=== PATIENT | male | born 1995 | race Caucasian/White ===

== ENCOUNTER 2020-07-09 08:57 | Emergency (ER) | payer OTHER, SELFPAY ==
[2020-07-09 09:44] VITALS: BP 116/72; PULSE 99; RESP 14; TEMP 36.9; O2SAT 99; BMI 25.7
--- NOTE | 2020-07-09 10:04 | ED_ITS ---
HPI - General Adult General Chief complaint: Upper Respiratory Symptoms Stated complaint: COVID LIKE SYMPTONS Time Seen by Provider: 07/09/20 09:47 Source: patient Mode of arrival: ambulatory Limitations: no limitations History of Present Illness HPI narrative: 25-year-old male who presents the emergency department for evaluation of viral-like illness. Patient states that he has been sick for approximately 6 days. He has felt hot and cold but did not take his temperature at home. He has had rhinorrhea and a cough which is occasionally productive. He feels short of breath but denies dyspnea on exertion. He has had myalgias which she states are mild. He noted nausea without vomiting. He had 4-5 loose stools per day for the past 4 days. He has had no change in his taste of sense of smell. He states that he has a friend that he was exposed to did test positive for COVID-19 virus. The patient states that he is not working at this time. He lives at home with his mother who is 49 years old and she is not ill at this time. Related Data Allergies Allergy/AdvReac Type Severity Reaction Status Date / Time No Known Allergies Allergy Unverified 02/12/20 16:34 Review of Systems Review of Systems: Yes all other systems are reviewed and are negative Neurologic: Reports Abnormal speech present [facility] Past Medical History [facility] Narrative: The patient has no medical problems. She denies tobacco and alcohol use. He does smoke marijuana 5 times a week. He states he is currently unemployed and living with his mother. Social History Social History Advance Directives: No Advance Directives Information Provided: No Physical Exam Vital Signs: Vital Signs: Last Vital Signs Temp 98.5 F 07/09/20 09:44 Pulse 99 07/09/20 09:44 Resp 14 07/09/20 09:44 BP 116/72 07/09/20 09:44 Pulse Ox 99 07/09/20 09:44 Body Mass Index 25.7 Const: General: cooperative and healthy appearing Orientation/consciousness: oriented to person and oriented to place Limitations: no limitations HENMT: Head: Yes normal to inspection, Yes normocephalic and Yes atraumatic Ears: external ears normal General nose exam: Normal external nose present Face and sinus: Yes normal facial exam Mouth: Normal oral and palatal mucosa present Throat: Yes posterior oropharynx normal Eyes: Periorbital: periorbital findings normal Eyelids: Yes eyelids normal Conjunctivae: conjunctivae normal Sclerae: sclerae normal Corneas: corneas normal Pupils: Equal, round and reactive pupils present Direct Ophthalmoscopy: normal light reflex Neck: Neck: Yes full ROM, Yes no lymphadenopathy, Yes no meningeal signs, Yes trachea midline and Yes supple Chest: Chest palpation & inspection: normal inspection of the chest and normal palpation of entire chest wall Resp: Effort & Inspection: normal respiratory effort and able to speak in complete sentences Auscultation: clear to auscultation bilaterally Cardio: Rate: regular rate Rhythm: regular rhythm Heart sounds: S1 normal heart sound present, S2 normal heart sound present and no murmurs GI: Inspection: Yes normal to inspection Palpation (GI): Soft to palpation, nontender, no guarding, not rigid and No hepatosplenomegaly present : General: Yes no CVA tenderness Back/Spine/Pelvis: Back: no CVA tenderness Cervical Spine: normal cervical lordosis Thoracic/Lumbar Spine: thoracic and lumbar spine normal to inspection Skin: Lesions: no lesions Rashes: no rashes Wounds: no wounds Neuro: General: oriented to person, oriented to place and no meningeal signs Cranial nerves: Yes Equal, round and reactive pupils present Cognition (Neuro): normal cognition Speech: Abnormal speech present Motor exam (neuro): 5/5 motor strength present throughout Extrem: General: Yes normal to inspection and Yes full ROM Psych: Appearance: well kempt Mental Status: mental status grossly normal Speech and movement: Normal speech and movement present Affect: normal affect Attitude: cooperative Thought process: Normal thought process present Thought content: Normal thought content present Course Course Course Narrative: 25-year-old male who presents emergency department for evaluation of viral-like illness which is consistent with COVID-19 infection. The patient will be tested for COVID 19. His exam was unremarkable, vital sign were normal with a temperature 98.5?, blood pressure 116/72, pulse 99 and respiratory to 14. O2 saturation was 99% on room air. Do not think that he needs any further evaluation. He was given printed instructions on COVID-19 and advised to isolate for 14 days. Discharge Plan Discharge Clinical Impression: Acute viral syndrome Patient Disposition: Home, Self-Care Instructions: COVID-19 (Coronavirus Disease 2019) (ED) Additional Instructions: Based on your symptoms and history, you were tested forCOVID-19. Your RESULT IS PENDING at this time. I will call you today with the result. You will be contacted with either a NEGATIVE OR POSITIVE results. Please wait until we contact you for your results. Based on your evaluation today, it is okay to send you home. Please plan for self quarantine for up to 14 days. Do not expose yourself to others. You may not go to work. If testing does come back negative you may return to activities as long as you are no longer having any symptoms for at least 3 days. Please continue to wear a mask, follow cold instructions and wash your hands frequently. You may take Tylenol 325 mg pills, 2 pills every 4 hours as needed for pain or fever. You may also take ibuprofen(Motrin/Advil) 200 mg pills, 3 pills every 6 hours as needed for pain or fever. Patient seen in the emergency department should be excused from work until negative test results AND until 72 hours without any symptoms have gone away completely OR at least 10 days have passed since symptoms first appeared or since last exposure to COVID-19 positive patient CDC Guidelines for home isolation: - Stay away from others - WEAR A MASK if you are sick AND STAY HOME - Cover your mouth and nose with a tissue when you cough or sneeze. Dispose of tissues in a lined trash can and wash your hands immediately with soap and water for at least 20 seconds. If soap and water are not available, clean hands with alcohol-based hand excellence coach that contains at least 60% alcohol. - Clean your hands often with soap and water for at least 20 seconds - Avoid touching your eyes, nose and mouth with unwashed hands - Do not share dishes, drinking glasses, cups, eating utensils, towels, or bedding with other people in your home. After using these items, wash them thoroughly with soap and water or put in the rotary dryer operator. - Clean high-touch surfaces in your isolation area ( sick room and bathroom) every day; let a caregiver clean and disinfect high-touch surfaces in other areas of the home. Clean the area or item with soap and water or another detergent if it is dirty. Then, use a household disinfectant. - Limit contact with pets and animals: If you must care for a pet, wash your h ands before and after interacting with them).
[2020-07-09 10:48] VITALS: BP 116/72; PULSE 99; RESP 14; TEMP 36.9; O2SAT 99
[2020-07-09 10:49] LABS: COVID-19 Test Negative (Negative); IDNOW Serial# 9DD0AD1C
== END 2020-07-09 10:50 | disposition home or self-care (01) ==
PROVIDERS: Emergency Provider Emergency Medicine Emergency Medical Services
DX: B34.9 Viral infection, unspecified (principal); Z20.822 Contact with and (suspected) exposure to COVID-19
CPT/HCPCS: 36415; 87635; 99283; 99285

== ENCOUNTER 2025-04-19 12:58 | Emergency (ER) | payer SELFPAY ==
--- OUTSIDE RECORDS SUMMARY | 2025-01-10 07:10 | XMS_ITS | Continuity of Care Document ---
Author Organization [facility] Address [address] [place] [address] Phone Care Team Providers Care Development Spec Name Role Phone Marie Blanca Unavailable Unavailabl e Allergies, Adverse Reactions, Alerts Substance Reaction Status Criticality No Known allergies Procedures Procedure Date DOT Physical With UA UA No Charge Drug Screen Rapid 5 Panel DOT Physical With UA Results Test Name Date and Time Measure Units Reference Range Abnormal Flag Status Comments Panel Description: Urine Dip Au Final Urine Dip Auto (DOT, NO CHARGE) 13:20:17 Leukocytes: negative. Nitrite: negative. Urobilinogen: 0.2 mg/dL. Protein: negative. pH: 6.0. Blood: 10 [place]/ L . Specific [place]: 1.020. Ketones: negative. Bilirubin: negative. Glucose: negative. Final Performed by:[facility] ([facility]) Advance Directives Directive Yes / No Effective Date File Name No Information Encounters Encounter Description Practice Location Reason(s) For Visit Diagnoses Date Provider Providers Copied on Encounter DOT Physical With UA [facility], [address], [place], [place], [id number], [place] tel:[phone] [facility] physical (chief complaint) Encounter for examination and observation for oth reasons Vinnie Salazar. [address], [place], [address], [place]. tel:[phone] Referring Provider: Marie MARTIN, [address], [place], [address]. [phone] [facility], [address], [place], [place], [id number], [place] tel:[phone] [facility] drug screen (chief complaint) Encounter for examination and observation for oth reasons Marc [facility] Celia. [address], [place], [address], [place]. tel:[phone] Referring Provider: Celia BASURTOP, [address], [place], [address]. [phone] DOT Physical With UA [facility], [address], [place], [place], [id number], [place] tel:[phone] [facility] physical (chief complaint) Encounter for examination and observation for oth reasons Marc [facility] Celia. [address], [place], [address], [place]. tel:[phone] Referring Provider: Celia BASURTOP, [address], [place], [address]. tel:[phone] Family History Family Member Type Diagnosis Age At Onset No Information Payers Payer name Insurance type Covered democrat ID Authoriza tion(s) No Information Social History Type Description Quantity Date Captured Comments Alcohol Use Details No Caffeine Use Details Unknown Tobacco Use Status No Information Smoking Status Never smoker Sex Male Vital Signs Date / Time: Height Weight BMI Pulse Rate Blood Pressure Temperature Respiratory Rate Body Surface Area Head Circumference Head Circ. Percentile Wt./Lobo. Percentile BMI percentile Pulse Ox Inhaled Ox 12:49 PM 68.00 in 105.687 kg (233.00 lbs) 35.4 3 kg/m eter (2) 54 /min 117/75 mm[Hg] 98.00 F 20 /min 99 % Chief Complaint And Reason For Visit From encounter dated '01/10/2025 12:10'. physical (chief complaint) Reason For Referral Reason For Referral No Information History Of Present Illness Encounter Date Complaint History Of Prese nt Illness physical drug screen physical Functional Status Date Functional Assessmen t No Information Instructions Date Instruction Additional Infor mation No Information Assessments Type Assessment Date assessment Encounter for examination and ob servation for oth reasons Patient Care Teams Name Effective Dates (start - stop) Status Members No Information
--- NOTE | ~2025-04-19 | XR_ITS ---
CLINICAL HISTORY: cp s p emesis 2 view chest x-ray Comparison: None provided Findings: No consolidation or effusion. Normal size heart. No acute fracture. IMPRESSION: 1. No acute findings. This document has been electronically signed by: Gillian Gilbert MD on 04/19/2025 14:33:55
--- NOTE | ~2025-04-19 | CT_ITS ---
CLINICAL HISTORY: upper diffuse abd pain, N V CT abdomen and pelvis with contrast Comparison: None provided Findings: No consolidation or effusion. Unremarkable gallbladder and solid organs. No urolithiasis. No bowel obstruction, pneumoperitoneum, or pneumatosis. There is diffuse wall thickening of the colon. Pelvic contents unremarkable. No evidence of acute appendicitis. The bones are intact. IMPRESSION: Diffuse wall thickening of the colon concerning for pancolitis. This document has been electronically signed by: Gillian Gilbert MD on 04/19/2025 15:27:32
--- NOTE | 2025-04-19 13:04 | ECG_ITS ---
Test Reason : CP Blood Pressure : */* mmHG Vent. Rate : 60 BPM Atrial Rate : 60 BPM P-R Int : 116 ms QRS Dur : 118 ms QT Int : 440 ms P-R-T Axes : 35 63 63 degrees QTcB Int : 440 ms Normal sinus rhythm RSR' or QR pattern in V1 suggests right ventricular conduction delay Borderline ECG No previous ECGs available Referred By: Generic ED Physician Electronically Signed By: Miquel Perez
[2025-04-19 13:09] VITALS: BP 125/72; BP 131/77; PULSE 62; PULSE 79; RESP 18; TEMP 36.2; O2SAT 100; O2SAT 99; BMI 23.0
--- NOTE | 2025-04-19 13:26 | ED_ITS ---
HPI - Nausea/Vomiting/Diarrhea General Chief complaint: Nausea/Vomiting/Diarrhea Stated complaint: VOMITING CHEST PAIN Time Seen by Provider: 04/19/25 13:09 Source: patient, EMS, RN notes reviewed and old records reviewed Mode of arrival: EMS History of Present Illness ED Provider: Azeb Morales PA-C HPI Narrative: 30-year-old male with no significant past medical history presenting to the ED complaining of nausea, vomiting, chest pain and SOB s/p 10 episodes of emesis this morning around 11:00. Admits to feeling hung over, drank a quart of hard liquor last night. Also reports some abdominal pain. Denies being daily drinker. Denies fever, chills, urinary symptoms Related Data Allergies Allergy/AdvReac Type Severity Reaction Status Date / Time No Known Allergies Allergy Verified 04/19/25 13:14 Review of Systems 2 Review of Systems: Yes all other systems are reviewed and are negative Constitutional: Constitutional: Reports as per HPI Neurologic: Denies Abnormal speech present [facility] Past Medical History Attestation statement: The following information was validated with the patient. Source: old records reviewed Social History Social History Alcohol intake: never Smoked in Last 30 Days: Yes Use of substances other than those prescribed or required for medical reasons: Yes Substance Use Type: Marijuana Substance Use Frequency: Daily Advance Directives: No Advance Directives Information Provided: Yes Do you have a plan to hurt others: No Plan Physical Exam 2 Vital Signs: Vital Signs: Last Vital Signs Temp 97.1 F 04/19/25 14:01 Pulse 79 04/19/25 14:01 Resp 18 04/19/25 14:01 BP 125/72 04/19/25 14:01 Pulse Ox 99 04/19/25 14:01 O2 Del Method Room Air 04/19/25 14:01 BMI result Body Mass Index 23.0 Const: General: cooperative, healthy appearing and no acute distress O rientation/consciousness: patient oriented x3 Limitations: no limitations HEENT: Head: Yes normal to inspection and Yes atraumatic Ears: hearing grossly normal bilaterally General nose exam: Normal external nose present Face and sinus: Yes normal facial exam Eyes: General: appearance normal, both eyes and all related structures EOM: EOMs intact bilaterally Neck: Neck: Yes normal visual inspection and Yes no meningeal signs Chest: Chest palpation & inspection: normal inspection of the chest and no tenderness Resp: Effort & Inspection: normal respiratory effort and no respiratory distress Auscultation: clear to auscultation bilaterally Cardio: Rate: regular rate Heart sounds: S1 normal heart sound present and S2 normal heart sound present GI: Inspection: Yes normal to inspection Palpation (GI): Soft to palpation, Tenderness to palpation present (GI) in the epigastrum, in the LUQ and in the RUQ; with no rebound tenderness, no guarding and not rigid Skin: Rashes: no rashes Wounds: no wounds Neuro: General: patient oriented x3, tone normal and no meningeal signs C ranial nerves: Yes CN's II-XII intact bilaterally Cognition (Neuro): normal cognition Speech: No Abnormal speech present Motor exam (neuro): no tremor noted Extrem: General: Yes normal to inspection Course Course Course Narrative: -lipase mildly elevated to 163 -UA with 40 ketones, not infected -ethanol negative. Viral testing negative CT abdomen pelvis w IV con IMPRESSION: Diffuse wall thickening of the colon concerning for pancolitis. >> on re-evaluation patient reports symptomatic improvement. Denies pain or nausea at present. Tolerated p.o. karolina misael and crackers in the ED without difficulty. Plan to discharge home with close PCP follow-up. Strict return precautions discussed Results discussed with patient including worrisome signs and symptoms and strict return precautions, and when to return to the emergency department. They verbalized understanding and feel safe for discharge at this time. Medications Administered Discontinued Medications Generic Name Dose Route Start Last Admin Trade Name Freq PRN Reason Stop Dose Admin Famotidine 20 mg 04/19/25 13:17 04/19/25 13:51 Famotidine/Pf 20 Mg/2 Ml Vial IVPUSH 04/19/25 13:18 20 mg ONCE ONE Administration Sodium Chloride 1,000 mls @ 999 mls/hr 04/19/25 13:30 04/19/25 16:09 Ns IV 04/19/25 14:30 Infused .Q1H1M CHAYO Infusion Sodium Chloride 1,000 mls @ 999 mls/hr 04/19/25 13:30 04/19/25 16:09 Ns IV 04/19/25 14:30 Infused .Q1H1M CHAYO Infusion Iohexol 100 ml 04/19/25 14:17 04/19/25 14:20 Iohexol 350 Mg/Ml 100 Ml Infus..Btl IV 04/19/25 14:18 85 ml ONCE ONE Administration Ketorolac Tromethamine 15 mg 04/19/25 13:18 04/19/25 13:51 Ketorolac Tromethamine 15 Mg/Ml Vial IVPUSH 04/19/25 13:19 15 mg ONCE ONE Administration Ondansetron HCl 4 mg 04/19/25 13:17 04/19/25 13:51 Ondansetron Hcl 4 Mg/2 Ml Vial IVPUSH 04/19/25 13:18 4 mg ONCE ONE Administration Medical Decision Making Medical Decision Making [facility] Narrative: 30-year-old male with no significant past medical history presenting to the ED complaining of nausea, vomiting, chest pain and SOB s/p 10 episodes of emesis this morning around 11:00. on exam vital signs stable, NAD, appears uncomfortable, CP not reproducible, abdomen is soft with epigastric / upper tenderness, no rebound or guarding. Concern for pancreatitis vs gastritis / GERD vs Boerhaave syndrome or Lolita-Garcia tear. Cholecystitis/ lithiasis on differential however lower. Lower suspicion for diverticulitis/ appendicitis. Rule out ACS. Low suspicion for dissection, PE plan: EKG, labs, CXR, CT AP, IVF, antiemetic /pain control, re-evaluate Please refer to course for remaining clinical decision making, interpretation of labs/imaging results, and discussions with consultants and/or family members. Differential Diagnosis Differential Diagnoses: The differential diagnosis associated with the presentation includes As above Admission/Observation Consideration of admission/observation: Escalation of care including admission/observation considered Lab Data [facility] Lab Attestation statement: I reviewed the patient's lab results. 04/19/25 13:39 04/19/25 13:39 Labs: Lab Results 04/19/25 04/19/25 Range/Units 13:39 14:58 WBC 11.2 H (4.8-10.8) X10*3/uL RBC 5.38 (4.60-5.80) X10*6/uL Hgb 14.5 (14.0-18.0) g/dl Hct 43.9 (42.0-52.0) % MCV 81.6 (80.0-98.0) fL MCH 27.0 (27.0-33.0) pg MCHC 33.0 (31.0-36.0) g/dl RDW 14.6 (11.0-16.0) % Plt Count 270 (160-400) X10*3/uL MPV 9.6 (9.4-12.4) fL Immature Gran % (Auto) 0.4 (0.0-0.4) % Neut % (Auto) 82.5 H (45-73) % Lymph % (Auto) 12.6 L (20-40) % [place] % (Auto) 3.8 (2-11) % Eos % (Auto) 0.2 (0-4) % Baso % (Auto) 0.5 (0-2) % Lymph # (Auto) 1.4 (1.2-4.9) X10*3/uL [place] # (Auto) 0.4 (0.1-1.2) X10*3/uL Eos # (Auto) 0.0 (0.0-0.4) X10*3/uL Baso # (Auto) 0.1 (0.0-0.2) X10*3/uL Abs Immat Gran (auto) 0.05 H (0.00-0.03) X10*3/uL Absolute Neuts (auto) 9.2 H (2.0-8.3) x10*3/uL Absolute Nucleated RBC 0.000 (0.0-0.012) X10*3/uL Nucleated RBC % (auto) 0.0 (0.0-0.2) /100WBC Sodium 143 (135-145) mmol/L Potassium 3.9 (3.3-5.1) mmol/L Chloride 104 (96-108) mmol/L Carbon Dioxide 25 (22-29) mmol/L Anion Gap 18 (12-20) BUN 15 (9-16) mg/dL Creatinine 0.74 (0.5-1.4) mg/dL Estim Creat Clear Calc 119.6 Estimated GFR > 60 Random Glucose 107 (60-115) mg/dL Calcium 9.6 (8.4-10.2) mg/dL Magnesium 1.8 (1.6-2.6) mg/dL Total Bilirubin 0.8 (0.0-1.0) mg/dL AST 34 (5-37) U/L ALT 25 (0-40) U/L Alkaline Phosphatase 54 (39-117) U/L Total Protein 8.1 H (6.5-8.0) g/dL Albumin 5.3 H (3.5-5.0) g/dL Lipase 163 H (8-78) U/L Urine Color Yellow Urine Appearance Clear Urine pH 7.0 (5.0-9.0) Ur Specific [place] >= 1.030 H (1.005-1.025) Urine Protein 30 (1+) H (Neg-Trace) mg/dL Urine Glucose (UA) Negative (Negative) mg/dL Urine Ketones 40 (Negative) mg/dL Urine Blood Negative (Negative) Urine Nitrite Negative (Negative) Ur Leukocyte Esterase Negative (Negative) Urine RBC 0-2 (0-2) /HPF Urine WBC 0-5 (0-5) /HPF Ur Squamous Epith Cells 0-2 (0-2) /HPF Urine Bacteria None Seen (None Seen) Hyaline Casts 0-2 (0-2) /LPF Ethyl Alcohol < 10 mg/dL Influenza Type A (PCR) NEGATIVE (Negative) Influenza Type B (PCR) NEGATIVE (Negative) RSV RNA Qual (PCR) NEGATIVE (Negative) SARS-CoV-2 RNA (RT-PCR) NEGATIVE (Negative) Independent Interpretation I performed an independent interpretation of an: EKG and CT Scan Radiology Impression Discussion of test interpretation with radiology: I have reviewed the radiologist's reading. Independent Historian Clinical information obtained from an independent historian. History obtained from or confirmed by: EMS External Record Review External record reviewed: Inpatient record, Office record, Outpatient record, Prior outpatient labs, Prior outpatient radiology, Primary care record and Outside ED record Tests considered The following testing was considered but not selected: As above Prescription Management I considered prescription management with: Pain Medication and Antibiotic Chronic Conditions Patient?s care impacted by: Other Social Determinants Patient?s care significantly limited by Social Determinants of Health including: Other Social Determinant of Health Discharge Plan Discharge Clinical Impression: Pancolitis Patient Disposition: Home, Self-Care Instructions: Colitis (ED) Additional Instructions: Your CAT scan shows pancolitis. Diffuse inflammation of your colon Please practice a bland diet. Make sure you are drinking plenty of fluids. If your symptoms persist or worsen, your pain becomes unbearable, you are unable to eat or drink or persistent nausea/vomiting or diarrhea return to the emergency department Avoid alcohol use Referrals: Physician,Yessica J [Primary Care Provider, Medical] - 1 week Print Language: Qatari
[2025-04-19 13:43] LABS: MANUAL DIFF FLAG NO
[2025-04-19 13:45] LABS: Hematocrit 43.9 % (42.0-52.0); Hemoglobin 14.5 g/dl (14.0-18.0); Imm Gran Abs Auto 0.05 X10*3/uL (0.00-0.03); Imm Gran Pct Auto 0.4 % (0.0-0.4); Lymphocytes Absolute Auto 1.4 X10*3/uL (1.2-4.9); Mean Corpuscular HGB Conc 33.0 g/dl (31.0-36.0); Mean Corpuscular Hemoglobin 27.0 pg (27.0-33.0); Mean Corpuscular Volume 81.6 fL (80.0-98.0); NRBC Abs Auto 0.000 X10*3/uL (0.0-0.012); NRBC Pct Auto 0.0 /100WBC (0.0-0.2); Platelet Count 270 X10*3/uL (160-400); Red Blood Count 5.38 X10*6/uL (4.60-5.80); White Blood Count 11.2 X10*3/uL (4.8-10.8)
[2025-04-19 14:01] VITALS: BP 125/72; PULSE 79; RESP 18; TEMP 36.2; O2SAT 99
[2025-04-19 14:02] LABS: Alanine Aminotransferase 25 U/L (0-40); Albumin Level 5.3 g/dL (3.5-5.0); Alkaline Phosphatase 54 U/L (39-117); Anion Gap 18 (12-20); Aspartate Amino Transferase 34 U/L (5-37); Blood Urea Nitrogen 15 mg/dL (9-16); Calcium 9.6 mg/dL (8.4-10.2); Carbon Dioxide 25 mmol/L (22-29); Chloride 104 mmol/L (96-108); Creatinine Clr Calc Pharmacy 119.6; Estimated Glomerular Filt Rate > 60; Lipase 163 U/L (8-78); Magnesium 1.8 mg/dL (1.6-2.6); Potassium 3.9 mmol/L (3.3-5.1); Sodium 143 mmol/L (135-145); Total Protein 8.1 g/dL (6.5-8.0)
[2025-04-19] MEDS: iohexoL 350 MG/ML 100 ML INFUS..BTL IV (14:20)
[2025-04-19 14:39] LABS: Resp Syncy Virus RNA Qual PCR NEGATIVE (Negative); SARS COV2 PCR INHOUSE NEGATIVE (Negative)
[2025-04-19 15:07] LABS: Appearance Urine Clear; Glucose Urine UA Negative (Negative); PH 7.0 (5.0-9.0); Specific Gravity - Urine >= 1.030 (1.005-1.025); UMIC TRIGGER UACC YES
[2025-04-19 16:57] VITALS: BP 125/72; PULSE 79; RESP 18; TEMP 36.2; O2SAT 99
== END 2025-04-19 16:57 | disposition home or self-care (01) ==
PROVIDERS: Physician Assistant; Physician Assistant Medical; Emergency Provider Emergency Medicine Emergency Medical Services
DX: K52.9 Noninfective gastroenteritis and colitis, unspecified (principal); R11.2 Nausea with vomiting, unspecified; R07.89 Other chest pain; R06.02 Shortness of breath; Z03.818 Encounter for observation for suspected exposure to other biological agents ruled out; Z79.899 Other long term (current) drug therapy; Z51.81 Encounter for therapeutic drug level monitoring
CPT/HCPCS: 36415; 71046; 74177; 80053; 80307; 81001; 83690; 83735; 85025; 87637; 93005; 96361; 96374; 96375; 99285; J1308; J1885; J2405; Q9967

== ENCOUNTER → 2025-04-19 13:04 | Outpatient (BNV) | payer SELFPAY | PROVIDERS: Emergency Provider Emergency Medicine Emergency Medical Services; Visit Provider Internal Medicine Cardiovascular Disease | DX: R07.9 Chest pain, unspecified (principal) | CPT/HCPCS: 93010 ==

== ENCOUNTER → 2025-04-19 13:17 | Outpatient (BNV) | payer SELFPAY | PROVIDERS: Emergency Provider Emergency Medicine Emergency Medical Services; Visit Provider Nuclear Medicine | DX: K63.89 Other specified diseases of intestine (principal); R07.9 Chest pain, unspecified | CPT/HCPCS: 71046; 74177 ==